=== PATIENT | female | born 1960 | race African-American/Black ===

== ENCOUNTER 2016-07-06 22:38 | Emergency (ER) | payer SELFPAY ==
[2016-07-07] MEDS ORDERED: NORMAL SALINE 1000 ML 1,000 ML IV ONE (00:28)
[2016-07-07] MEDS ORDERED: ONDANSETRON HCL INJ/PF 4 MG/2 ML SDV IV ONE (00:29)
--- NOTE | 2016-07-07 00:31 | ER Document Report ---
ED General - General Chief Complaint: Abdominal Pain Stated Complaint: ABDOMINAL PAIN Time Seen by Provider: 07/06/16 23:54 Notes: Patient is a 56-year-old female with a past medical history of gastroesophageal reflux disease, no prior abdominal surgical history who presents with 24 hours of epigastric abdominal pain with associated vomiting. States she's had persistent, nonbilious vomiting today and has been unable to tolerate any food intake. States she's had similar symptoms in the past with exacerbations of her reflux but never to this degree of severity. She is visiting from out of town so she has been unable see her primary care doctor. Nothing improves or worsens or symptoms. She denies any associated chest pain or shortness of breath. - Related Data Allergies/Adverse Reactions: No Known Allergies Allergy (Unverified 07/06/16 23:23) Past Medical History - General Information source: Patient - Social History Smoking Status: Never Smoker Frequency of alcohol use: None Drug Abuse: None Lives with: Family Family History: Reviewed & Not Pertinent Patient has suicidal ideation: No Patient has homicidal ideation: No Renal/ Medical History: Denies: Hx Peritoneal Dialysis Review of Systems - Review of Systems Notes: Constitutional: Negative for fever. HENT: Negative for sore throat. Eyes: Negative for visual changes. Cardiovascular: Negative for chest pain. Respiratory: Negative for shortness of breath. Gastrointestinal: Positive for abdominal pain and vomiting Genitourinary: Negative for dysuria. Musculoskeletal: Negative for back pain. Skin: Negative for rash. Neurological: Negative for headaches, weakness or numbness. 10 point ROS negative except as marked above and in HPI. Physical Exam - Vital signs Vitals: Temp Pulse Resp BP Pulse Ox 98.1 F 102 H 16 184/95 H 96 07/06/16 23:21 07/06/16 23:21 07/06/16 23:21 07/06/16 23:21 07/06/16 23:21 Interpretation: Hypertensive, Tachycardic Notes: PHYSICAL EXAMINATION: GENERAL: Appears uncomfortable but in no acute distress HEAD: Atraumatic, normocephalic. EYES: Pupils equal round and reactive to light, extraocular movements intact, sclera anicteric, conjunctiva are normal. ENT: nares patent, oropharynx clear without exudates. Dry mucous membranes. NECK: Normal range of motion, supple without lymphadenopathy LUNGS: Breath sounds clear to auscultation bilaterally and equal. No wheezes rales or rhonchi. HEART: Regular rate and rhythm without murmurs ABDOMEN: Soft, epigastric abdominal pain on palpation, normoactive bowel sounds. No guarding, no rebound. No masses appreciated. EXTREMITIES: Normal range of motion, no pitting or edema. No cyanosis. NEUROLOGICAL: No focal neurological deficits. Moves all extremities spontaneously and on command. PSYCH: Normal mood, normal affect. SKIN: Warm, Dry, normal turgor, no rashes or lesions noted. Course - Re-evaluation Re-evalutation: 07/07/16 00:30 Patient presents with 2 days of progressively worsening epigastric abdominal pain with associated vomiting. She is somewhat ill appearance on initial assessment. She has some focal tenderness to the epigastrium without any rebound or guarding. No lower abdominal tenderness. Right upper quadrant ultrasound at the bedside shows gallbladder wall thickening and several large stones. Differential includes gastroesophageal irritation, duodenitis, possible acute cholecystitis versus symptomatic cholelithiasis. Will symptomatically treat, obtain labs and formal ultrasound and reassess. 07/07/16 02:22 Laboratories demonstrate moderate hypokalemia likely secondary to persistent vomiting. Both potassium and magnesium will be replaced. Ultrasound demonstrates incidental liver lesion no evidence of acute cholecystitis. Patient has not had any additional episodes of vomiting has tolerated fluids by mouth. Pain is resolved. Most likely diagnosis at this time is gastroduodenitis. At this time will discharge with return precautions and follow -up recommendations. Verbal discharge instructions given a the bedside and opportunity for questions given. Medication warnings reviewed. Patient is in agreement with this plan and has verbalized understanding of return precautions and the need for primary care follow-up in the next 24-72 hours. - Vital Signs Vital signs: Temp Pulse Resp BP Pulse Ox 98.1 F 102 H 16 184/95 H 96 07/06/16 23:21 07/06/16 23:21 07/06/16 23:21 07/06/16 23:21 07/06/16 23:21 - Laboratory Result Diagrams: 07/07/16 00:45 07/07/16 00:45 Laboratory results interpreted by me: 07/07/16 07/07/16 00:45 00:45 Seg Neutrophils % 80.9 H Lymphocytes % 12.0 L Potassium 2.8 L* Chloride 94 L Creatinine 0.49 L Glucose 185 H Calcium 10.4 H Total Bilirubin 1.4 H Direct Bilirubin 0.5 H - Diagnostic Test Radiology reviewed: Image reviewed, Reports reviewed Discharge - Discharge Clinical Impression: Epigastric abdominal pain, Hypokalemia Nausea and vomiting Qualifiers: Vomiting type: unspecified Vomiting Intractability: non-intractable Qualified Code(s): R11.2 - Nausea with vomiting, unspecified Condition: Good Disposition: HOME, SELF-CARE Additional Instructions: Your symptoms appear to be most consistent with stomach or upper intestinal irritation. Your evaluation here today has not demonstrated an alternative cause for your symptoms. Please begin taking famotidine 40 mg in the morning and 40 mg at night. This medicine can be purchased directly [id number]. You may also take medicine such as Pepto-Bismol or Tums to assist with your pain. Please follow closely with your primary care doctor in the next 24-48 hours regarding today's emergency department visit. Please return immediately if you develop persistent vomiting, worsening pain, again having bloody bowel movements, develop a fever greater than 100.4F, or have any other symptoms that are worrisome to you.
[2016-07-07] MEDS: MORPHINE SULFATE 10 MG/ML INJ IV PRN ×2 (00:57→03:00)
[2016-07-07 01:00] LABS: ABSOLUTE BASOPHILS # (AUTO) 0.1 10^3/uL (0.0-0.2); ABSOLUTE LYMPHOCYTES (AUTO) 1.1 10^3/uL (0.5-4.7); ABSOLUTE MONOCYTES (AUTO) 0.5 10^3/uL (0.1-1.4); ABSOLUTE NEUT (AUTO) 7.2 10^3/uL (1.7-8.2); BASOPHILS % (AUTO) 1.3 % (0-2); EOSINOPHILS % (AUTO) 0.1 % (0-6); HEMOGLOBIN 14.9 g/dL (12.0-15.5); HGB HCT DIFFERENCE 1.7; MEAN CORPUSCULAR HEMOGLOBIN 30.9 pg (27.0-33.4); MEAN CORPUSCULAR HGB CONC 34.6 g/dL (32.0-36.0); MEAN CORPUSCULAR VOLUME 89 fl (80-97); MONOCYTES % (AUTO) 5.7 % (3-13); RED CELL DISTRIBUTION WIDTH 12.1 % (11.5-14.0); SEGMENTED NEUTROPHILS % (AUTO) 80.9 % (42-78); WHITE BLOOD COUNT 8.9 10^3/uL (4.0-10.5)
[2016-07-07 01:10] LABS: ALANINE AMINOTRANSFERASE 33 U/L (9-52); ALBUMIN 4.6 g/dL (3.5-5.0); ALKALINE PHOSPHATASE 100 U/L (38-126); ANION GAP 15 (5-19); ASPARTATE AMINO TRANSFERASE 32 U/L (14-36); BILIRUBIN,DIRECT 0.5 mg/dL (0.0-0.4); BILIRUBIN,TOTAL 1.4 mg/dL (0.2-1.3); BLOOD UREA NITROGEN 13 mg/dL (7-20); CALCIUM 10.4 mg/dL (8.4-10.2); CARBON DIOXIDE 29 mmol/L (22-30); CHLORIDE 94 mmol/L (98-107); CREATININE RESULT 0.49 mg/dL (0.52-1.25); GLUCOSE 185 mg/dL (75-110); LIPASE 97.1 U/L (23-300); SODIUM 138.1 mmol/L (137-145); TOTAL PROTEIN 8.2 g/dL (6.3-8.2)
[2016-07-07 01:14] LABS: POTASSIUM 2.8 mmol/L (3.6-5.0)
[2016-07-07] MEDS ORDERED: POTASSI CL 20 MEQ/50 ML RIDER 50 ML IV ONE (01:19)
[2016-07-07] MEDS ORDERED: POTASSIUM CHLORIDE 10 MEQ TABLET.SA PO ONE (01:19)
[2016-07-07] MEDS ORDERED: MAGNESIUM SULFATE/D5W 100 ML IV SCH (01:30)
[2016-07-07] MEDS ORDERED: METOCLOPRAMIDE HCL ORAL SOLN 10 MG/10 ML UDCUP PO ONE (02:00)
[2016-07-07] MEDS ORDERED: MAG HYDROX/AL HYDROX/SIMETH SUSP 30 ML UDCUP PO ONE (02:00)
[2016-07-07] MEDS ORDERED: LIDOCAINE 2% VISCOUS SOLN 20 ML UDCUP PO ONE (02:00)
[2016-07-07] MEDS ORDERED: FAMOTIDINE 20 MG TABLET PO ONE (02:00)
[2016-07-07] MEDS ORDERED: ONDANSETRON HCL INJ/PF 4 MG/2 ML SDV ONE (03:19)
[2016-07-07] MEDS ORDERED: POTASSIUM CHLORIDE 20 MEQ/15 ML UDCUP PO ONE (03:50)
[2016-07-07 05:11] VITALS: BP 120/79
== END 2016-07-07 05:11 | disposition home or self-care (01) ==
LOC: ER 22:38
DX: K80.20 Calculus of gallbladder without cholecystitis without obstruction (principal); R10.13 Epigastric pain; K76.9 Liver disease, unspecified; E87.6 Hypokalemia; R11.2 Nausea with vomiting, unspecified; R00.0 Tachycardia, unspecified; Z87.19 Personal history of other diseases of the digestive system
CPT/HCPCS: 36415; 83690; 85025; 80053; 84484; 76705; J3490; J2270; J2405; J3480; 96361; 96365; 96366; 96375; 96376; 99284